=== PATIENT | female | born 1950 | race Caucasian/White ===

== ENCOUNTER 2017-02-02 08:38 | Day surgery (SDC) | payer MEDICARE, OTHER ==
[2017-02-02] VITALS (10 sets, daily range): BP systolic 110–141; BP diastolic 49–76; PULSE 64–74; RESP 12–18; O2SAT 99–100
[~2017-02-02] VITALS: Ht 175.3 cm; Wt 52.1 kg
[~2017-02-02 08:38] MED LIST: ASCO1TAB12 PO; BONE UP PO; CHOL500011 PO; CINN500C14 PO; COD1CAPS6 PO; CeFAZolin Inj 2 GM in IV Premix 1 EACH IV ONE; FLAXSEED OIL PO; GLUC-123 PO; [UNRECOGNIZED DRUG - OTHER] PO; [UNRECOGNIZED DRUG - OTHER] PO; [UNRECOGNIZED DRUG - OTHER] PO; [UNRECOGNIZED DRUG - OTHER] PO
[2017-02-02] MEDS ORDERED: Ondansetron 2 mg/mL 2 mL Inj ONE (08:39)
[2017-02-02] MEDS ORDERED: fentaNYL-PF 50 mCg/mL 2 mL Inj ONE (08:39)
[2017-02-02] MEDS ORDERED: EPHEDrine/NS 5 mg/mL 5 mL Syringe ONE (08:39)
[2017-02-02] MEDS ORDERED: Propofol 10,000 mCg/mL 20 mL Inj ONE (08:39)
[2017-02-02] MEDS: Lactated Ringer's 1,000 ML IV SCH ×2 (08:50→10:19)
--- NOTE | 2017-02-02 09:48 | PCM.HPANE ---
Patient Data Surgeon Admitting Provider: Attending Provider:Serafin Pitts MD Primary Care Physician:Mary Skinner Other Provider:Madison Gaffney Anesthesia Reason for Visit Left Breast Dcis Ht/WT & BMI Height (Feet): 5 Height (Inches): 9.00 Weight (Kilograms): 52.100 Body Mass Index 17.00 Allergies Uncoded Allergies: NKDA (Allergy, Unknown, 01/20/17) Past Anesthesia History Anesthesia History: Denies:: Abnormal Airway, Anesthesia Reactions, Difficult Intubation, Fam Anesthesia Reaction, Fam Malignant Hypertherm, Malignant Hyperthermia Diabetes History Hx Diabetes?: No MRSA MRSA: No Medications Hypertension Medication: No Home Meds Incl Beta Saul: No Reported Medications [Oz-Natural] No Conflict [id number] Mg PO PRN 01/20/17 Cinnamon Bark (Cinnamon)500 Mg [id number] Mg PO PRN 01/20/17 [Ultra [place] Balance] No Conflict Check1 Tablet PO DAILY 01/20/17 Gluc/Samm-MSM#2/C/D3/Derek/Born (Vouaqloeaw-Ajhbmzhnuep-LQR Tab)1 Each Tablet1 Each PO BID 01/20/17 Ascorbate Calcium/Bioflavonoid (Bernie-C 500 mg Tablet)1 Each Tablet1 Each PO BID 01/20/17 Cholecalciferol (Vitamin D3) (Vitamin D3)5,000 Unit [id number],000 Unit PO BID 01/20/17 [Flaxseed Oil] No Conflict Check1,000 Mg PO HS 01/20/17 [Spectrazyme] No Conflict Check1 Tablet PO NOON&PM 01/20/17 Cod Liver Oil 1 Each Capsule1 Each PO DAILY 01/20/17 [Crucera-565] No Conflict Check2 Tablet PO TID 01/20/17 [Bone Up] No Conflict Check2 Tablet PO TID 01/20/17 History History of ENT Problems?: Yes HEENT History: Positive for:: Sinus Problem (hx of sinusitis) Denies:: Abnormal Airway Cataracts (forming, no surgery) Difficult Intubation Dysphagia Glaucoma 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 Denture Type: None Teeth Condition: Within Normal Limits Hx of Heart Problems?: No Cardiovascular History: Denies:: AICD Abdominal Aortic Aneurism Atrial Fibrillation Chest Pain Heart Murmur Hypertension Irregular Heartbeat Pacemaker Peripheral Vascular Hx of Respiratory Problem?: No Respiratory History: Denies:: Asthma COPD Emphysema Oxygen Administration Pneumonia Tuberculosis Use of C-PAP Machine Use of Inhalers / NEBS Hx Neurologic Problems?: No Neurological History: Denies:: Alzheimer's Disease CVA Dementia Dizziness Headaches (occasional sinus headaches) Multiple Sclerosis Seizures TIA Hx of GI Problems?: No Hx of Problems?: No Genitourinary History: Denies:: Kidney Stones Urinary Tract Infection Female Hx: Positive for:: Problems with Breasts? (left breast DCIS current admission problem) Denies:: Currently Other History/Comment Breast cancer, recent diagnosis Skin History: Denies:: History Skin Disorders? Pressure Ulcers Hx Musculoskeletal Problems?: Yes Musculoskeletal History: Positive for:: Osteoarthritis Denies:: Fibromyalgia Joint Replacement Musculoskeletal Trauma Hx of Psycho/Social Problems?: No Psycho Social History: Denies:: Anxiety Hx Depression Hx Surgeries?: Yes (TONSILS 1960, ingrown toenails) Hx Any Other Health Problems?: Yes Other History: Positive for:: Cancer (left breast cancer) Denies:: Thyroid Disease History Blood Transfusions: Positive for:: Accept Blood Products? Denies:: Blood Transfusions Hx Diabetes: No Hx Alcohol Use: YesAlcoholic Drinks Per Day: two drinks weeklyHx Substance Use : No Smoking Status: Never Smoker Have You Smoked inLast 12 mo: No Stop/Bang Treated for Sleep Apnea?: No Do You Have a CPAP Machine?: No S-Snoring: Do You Snore Loudly: No T-Tired: feel tired, fatigued: No O-Obsered: Observed not breath: No P-Blood Pressure: treated: No B- Body Mass Index > 35 kg/m2: No A- Age over 50: Yes N- Neck Large Circumference: No G- Gender Male: No ROBERT Total Score: 1 Risk Assessment Category Category 1A: Patient has history of documented sleep apnea, and HAS NOT received any narcotic, sedative or anesthesia administration during this stay. Category 1B: Patient has history of documented sleep apnea, and HAS received any narcotic , sedative or anesthesia administration during this stay Category 2: Patient has SUSPECTED Obstructive Sleep Apnea, and HAS received any narcotic , sedative or anesthesia administration during this stay. Category 3: Patient has SUSPECTED Obstructive Sleep Apnea and HAS NOT received narcotic, sedative or anesthesia administration during this stay. Category 4: Outpatient in Procedural Areas with known sleep apnea or who screen positive for High Risk via the STOP/BANG questionnaire. Exam Exam Vital Signs Vital Signs Date Time Temp Pulse Resp B/P Pulse Ox O2 Delivery O2 Flow Rate FiO2 02/02/17 09:11 36.3 74 15 141/76 99 Room Air 02/02/17 08:53 36.3 74 15 141/76 99 Room Air General Appearance: Alert, Oriented X3, Cooperative HEENT/AIRWAY: MP 2 Lungs: Clear to Auscultation, Normal Air Movement Heart: Exam Unremarkable Meds/Labs/Diagnostics Admission Meds Current Medications Lactated Ringer's (Lr) 1,000 ml @ 120 mls/hr Q8H20M IV Last administered on t 08:50; Start 02/02/17 at 05:00; Stop 02/02/17 at 13:19 Plan Impression Patient chart reviewed, patient interviewed and anesthestic plan with risks, benefits, and alternatives discussed, and informed consent obtained. ASA Physical Status: ASA2 Mod Systemic Disease Anesthetic Plan: GA Bene/Risks/Altern/Consents: Yes HP Complete Prior to Induction: Yes Jose Cazares MD Feb 02, 2017 09:48
[2017-02-02] MEDS ORDERED: Bupivacaine-MPF 0.5% 30 mL Inj INFILTRATE ONE (10:19)
[2017-02-02] MEDS ORDERED: Lactated Ringer's 1,000 ML IV SCH (10:23)
[2017-02-02] MEDS ORDERED: Lactated Ringer's 500 ML IV PRN (10:23)
[2017-02-02] MEDS ORDERED: MetoCLOpramide 5 mg/mL 2 mL Inj IVPUSH PRN (10:25)
[2017-02-02] MEDS ORDERED: fentaNYL-PF 50 mCg/mL 2 mL Inj IVPUSH PRN (10:25)
[2017-02-02] MEDS ORDERED: Dexamethasone 4 mg/mL Inj IVPUSH PRN (10:25)
[2017-02-02] MEDS ORDERED: Phenylephrine 10,000 mCg/mL Inj IVPUSH PRN (10:25)
[2017-02-02] MEDS ORDERED: Ondansetron 2 mg/mL 2 mL Inj IVPUSH PRN (10:25)
[2017-02-02] MEDS ORDERED: EPHEDrine Sulfate 50 mg/mL Inj IVPUSH PRN (10:25)
[2017-02-02] MEDS ORDERED: HYDROmorphone 1 mg/mL Inj IVPUSH PRN (10:25)
[2017-02-02] MEDS ORDERED: HYDROcodone-APAP 5-325 mg Tablet PO PRN (10:50)
--- NOTE | 2017-02-02 10:51 | PCM.DISURG ---
Surgical Discharge Instruction Date of Service Feb 02, 2017 Dates of Hospitalization Date of Hospital Admission Providers Admitting Physician: Primary Care Physician: Mary Skinner Attending Physician: Serafin Pitts MD Discharge Diagnosis Discharge Diagnosis Left breast DCIS Diet Discharge Diet: No restrictions Activity Discharge Activity-General: No restrictions Dressing and Incisional Care Dressing Care: Allow Steri Stripes to fall off, Remove outer dressing after 24 hrs Hygiene: May shower after (24 hours) Follow Up Plan Follow Up Plan With Dr. Pitts in surgery clinic in 10-14 days Call your provider for: Fever (over 101.5), Discharge @ incision, pus discharge Serafin Pitts MD Feb 02, 2017 10:51
--- NOTE | 2017-02-02 10:57 | PCM.SURGOP ---
Surgical Operative Report Date of Service: Feb 02, 2017 Pre Operative Diagnosis left breast DCIS Post Operative Diagnosis Same Procedure: Wire localized left partial mastectomy Surgeon and Seater Assembler: Surgeon: Serafin Pitts MD Assistants: Kings Pierce PA-C Indication for Procedure 66-year-old woman who had new segmental pleomorphic calcifications in the left breast 12 o'clock position on screening mammograms. After additional views, a stereotactic biopsy was performed, which showed intermediate and high-grade DCIS , ER/AZ positive. MRI showed no evidence of contralateral disease or synchronous disease elsewhere in the left breast. After discussion of risks and benefits, she agreed to proceed with wire localized left partial mastectomy. Findings: The clip and calcifications were successfully localized. Procedure Details Preoperatively, the patient underwent wire localization in the Breast [facility]. She was then brought to the operating room where she underwent smooth induction of general anesthesia with an LMA. She was placed in the supine position with both arms out, and was prepped and draped in wide sterile fashion. A procedural pause was performed according to the SCOAP checklist, and all were found to be in agreement. A transverse incision was made in the left superior breast, midway between the wire location and the nipple, because the wire was coming in at a severe tangential angle. Skin flaps were raised superiorly and inferiorly. The wire was delivered into the wound. Circumferential dissection was carried out with electrocautery, using the wire as a guide. The tip of the wire was not encountered. She had very dense breast tissue. The posterior margin of dissection was the pectoralis fascia. The left breast tissue from the 12 o' clock position was oriented with suture, and a specimen x-ray was obtained. This confirmed that the localizing clip and microcalcifications had been localized successfully. The tissue was sent for permanent pathology. Additional shave margins were obtained from both the anterior aspect of the cavity, and the medial aspect of the cavity. The anterior dissection was performed with Metzenbaum scissors, because the skin flap was already fairly thin. The anterior margin was oriented with suture, and sent for permanent pathology. The medial margin was dissected with electrocautery, oriented with suture, and sent for permanent pathology. The cavity was marked with hemoclips circumferentially. The breast parenchyma was closed from medial to lateral with interrupted 3-0 Vicryl sutures. The skin incision was closed with a running 4-0 Vicryl subcuticular stitch. Steri-Strips and sterile dressings were applied. At the end of the case all needle and sponge counts were correct 2. The patient was awakened from anesthesia without difficulty, and taken to the recovery room in satisfactory condition, having tolerated the procedure well. Complications There were no periprocedural complications identified. Surgical Specimen Removed: Yes Specimen sent to Pathology: Yes Surgical Specimen description: Left breast tissue, 12:00. Anterior margin. Medial margin. Anesthetic Plan: GA Grafts, Implants: None Output, Estimated Blood Loss: 10 Blood Administration during caldwell: No Drains: None Catheters: None copies to: Cruzito Fox MD; Mary Skinner; Bean Parr DO; Rob Mckeon MD, Joshua D MD Feb 02, 2017 10:57
--- NOTE | 2017-02-02 11:03 | PCM.ANEP1 ---
Post Anesthesia Phase 1 PACU Phase 1 Assessment Date of Service: Feb 02, 2017 Vital Signs Vital Signs Date Time Temp Pulse Resp B/P Pulse Ox O2 Delivery O2 Flow Rate FiO2 02/02/17 11:00 74 12 114/50 100 Simple Mask 8 02/02/17 10:55 36.3 74 12 110/59 100 Simple Mask 8 02/02/17 09:11 36.3 74 15 141/76 99 Room Air 02/02/17 08:53 36.3 74 15 141/76 99 Room Air Anesthetic Administered: GA Level of Alertness: Sleepy, easy to arouse COLEMAN's with Equal Strength: No Pain: No Nausea or Vomiting: No Cardiovascular Function and Hy: No Oxygen Delivery: Simple Mask Lungs: Clear to Auscultation, Normal Air Movement Complications: No Jose Cazares MD Feb 02, 2017 11:03
--- NOTE | 2017-02-03 07:22 | DRSVH ---
SPECIMEN LEFT BREAST: 02/02/2017 CLINICAL: Breast specimen. Correlation is made to exams dated: 02/02/2017 localization, 02/02/2017 mammogram, 01/01/2017 stereotac tic biopsy, 11/20/2016 mammogram, and 11/13/2016 mammogram - Breast [facility]. A surgical and wire localization specimen was imaged for the area of pleomorphic calcifications loca maximiliano in the left breast at 12 o'clock middle depth. IMPRESSION: SPECIMEN The imaged specimen includes the calcifications, a biopsy clip, and the distal portion of the localiz ation wire. This exam was interpreted at Station ID: [id number]. Oneal loaizatb/:02/02/2017 13:17:30 copy to: PASCUAL CASTAÑEDA Additional referring physicians: KEATON BROOKS, PASCUAL MENA
--- NOTE | 2017-02-04 17:31 | PATH ---
SURGICAL PATHOLOGY Attending Physician:Valentina Segovia CASE STATUS: Signed Out PATIENT NAME: PASCUAL MEYER PID: [id number] : 1950 DATE COLLECTED:02/02/2017 16:21 SPECIMEN: 1: Breast Mass, Excision (Wire Localization) 2: Breast Margin 3: Breast Margin CLINICAL HISTORY: 1. LEFT BREAST- SHORT STITCH SUPERIOR, LONG STITCH LATERAL 2. LEFT ANTERIOR MARGIN-SHORT SUPERIOR, LONG LATERAL 3. 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 NO EVIDENCE OF INVASIVE CARCINOMA. PLEASE SEE SUMMARY CANCER DATA BELOW. 2.LEFT ANTERIOR MARGIN: BENIGN BREAST PARENCHYMA, NEGATIVE FOR ATYPICAL HYPERPLASIA, IN SITU OR INVASIVE CARCINOMA. 3.LEFT MEDIAL MARGIN: BENIGN BREAST PARENCHYMA, NEGATIVE FOR ATYPICAL HYPERPLASIA, IN SITU OR INVASIVE CARCINOMA. CAP CANCER CASE SUMMARY: Ductal Carcinoma In Situ of the Breast: Procedure: PARTIAL MASTECTOMY WITH WIRE GUIDED LOCALIZATION Specimen laterality: LEFT Size of DCIS: 2.4 CM (involves slices 3-10, 3mm thick slices) Number of blocks with DCIS: 9 Number of blocks examined: 34 Histologic type: DUCTAL CARCINOMA IN SITU Architectural patterns: CRIBRIFORM, SOLID, AND COMEDO Nuclear grade: HIGH NUCLEAR GRADE (GRADE III) Necrosis: PRESENT, CENTRAL WITH COMEDONECROSIS. Microcalicifications: PRESENT IN ASSOCIATION WITH DCIS AND BENIGN DUCTS. Margins: MARGINS ARE NEGATIVE FOR DCIS. Distance from closest margin: DCIS IS LESS THAN 1 MM FROM THE POSTERIOR MARGIN. REMAINING MARGINS ARE GREATER THAN 5 MM FROM DCIS. Pathologic staging: AJCC, 7th ed., 2010 Primary tumor: pTis Additional pathologic findings: FIBROCYSTIC-TYPE CHANGES ARE PRESENT. BIOPSY SITE CHANGES ARE PRESENT. Ancillary studies: Biomarkers Performed Previously on Case: [id number] ([employer] [facility], [place], [place]) Estrogen Receptor (ER) Status: STRONG, 90% OF CELLS Progesterone Receptor (PgR) Status: STRONG, 20-30% OF CELLS ICD10 CODE D05.10 GROSS DESCRIPTION: The specimens are received in formalin, labeled with the patient's name, and sublabeled as the following: (1) left breast; (2) left interior margin; (3) left medial margin. (1) The specimen consists of a piece of breast tissue (2.4 cm in AP, 5.0 cm SI, 3.8 cm ML) with no overlying skin. The specimen is oriented with 2 black sutures (short-superior, long-lateral). A localization wire is present. The specimen is serially sectioned SI into 17 slices with a superior and inferior resection margins as slices #1 and #17 respectively. The breast tissue is fatty and diffusely focally fibrous firm and gritty. No defined nodules, masses or lesions are identified. Ink code: purple-anterior; yellow-posterior; black-superior; orange-inferior; green-medial; blue-lateral. Section code: (1A) superior resection margin, perpendicularly sectioned; (1B) slice #2; (1C) slice #3; (1D) slice #4; (1E) slice #5; (1F-1G) slice #6, bisected and submitted ML; (1H-1I) slice #7, bisected and submitted ML; (1J-1K) slice #8, bisected and submitted ML; (1L-1M) slice #9, bisected and submitted ML; (1N-1O) slice #10, bisected and submitted ML; (1P-1Q) slice #11, bisected and submitted ML; (1R) slice #12; (1S-1T) slice #13, bisected and submitted ML; (1U-1V) slice #14, bisected and submitted ML; (1W) slice #15; (1X) slice #16; (1Y) inferior resection margin, perpendicularly sectioned. Specimen entirely submitted. (2) The specimen consists of a piece of breast tissue (0.5 cm AP, 1.9 cm SI, 2.6 cm ML) with no overlying skin. The specimen is oriented with 2 black sutures (short-superior, long-lateral). No localization wire is present. The breast tissue is fibrofatty with no nodules, masses or lesions identified. Ink code: purple-anterior; yellow-posterior; black-superior; orange-inferior; green-medial; blue-lateral. Section code: (2A-2D) breast tissue, serially sectioned and submitted ML, 3 slices in each cassette. Specimen entirely submitted. (3) The specimen consists of a separate tissue (2.2 cm AP, 3.9 cm SI, 1.0 cm ML) with no overlying skin. The specimen is oriented with 2 black sutures (short-superior, long-posterior). No localization wire is present. The breast tissue is fibrofatty with no nodules, masses, or lesions are identified. Ink code: purple-anterior; yellow-posterior; black-superior; orange-inferior; green-medial; blue-lateral. . Section code: (3A-2E) breast tissue, serially sectioned and submitted SI, 3 slices in each cassette. Specimen entirely submitted. Note: Approximate total fixation time in formalin-29 hours and 30 minutes using a collection date of February 02, 2017 with no collection time given. 02/03/17 MICRO DESCRIPTION: See diagnosis. ICD-9 CODES: CPT CODES: 1: 80046 2: 50099 3: 45659 Electronically Signed Out Sydnie An MD [facility] Pathology [facility] [address], [place] [address] Technical component performed at [facility], [address] [place] [address] [address], [place], [address]
== END 2017-02-02 23:59 | disposition home or self-care (01) ==
LOC: SAS 08:38
PROVIDERS: ATTEND Student in an Organized Health Care Education/Training Program
DX: D05.12 Intraductal carcinoma in situ of left breast (principal); M81.0 Age-related osteoporosis without current pathological fracture; H52.00 Hypermetropia, unspecified eye; M19.90 Unspecified osteoarthritis, unspecified site; Z17.0 Estrogen receptor positive status [ER+]
CPT/HCPCS: 19301; 76098; J0690; J2250; J2405; J3010; J7120